=== PATIENT | male | born 1965 | race Caucasian/White ===

== ENCOUNTER → 2017-12-18 | Outpatient (CLI) | payer OTHER ==
[2017-12-18 12:47] LABS: ABSOLUTE BASOPHILS # (AUTO) 0.1 10^3/uL (0.0-0.2); ABSOLUTE EOSINOPHILS # (AUTO) 0.2 10^3/uL (0.0-0.6); ABSOLUTE LYMPHOCYTES (AUTO) 1.5 10^3/uL (0.5-4.7); ABSOLUTE MONOCYTES (AUTO) 0.6 10^3/uL (0.1-1.4); ABSOLUTE NEUT (AUTO) 2.6 10^3/uL (1.7-8.2); BASOPHILS % (AUTO) 1.2 % (0-2); EOSINOPHILS % (AUTO) 4.7 % (0-6); HEMATOCRIT 42.5 % (37.9-51.0); HEMOGLOBIN 14.4 g/dL (13.5-17.0); LYMPHOCYTES % (AUTO) 30.2 % (13-45); MEAN CORPUSCULAR HEMOGLOBIN 28.5 pg (27.0-33.4); MEAN CORPUSCULAR VOLUME 84 fl (80-97); MONOCYTES % (AUTO) 11.5 % (3-13); PLATELET COUNT 205 10^3/uL (150-450); RED BLOOD COUNT 5.06 10^6/uL (4.35-5.55); RED CELL DISTRIBUTION WIDTH 14.2 % (11.5-14.0); SEGMENTED NEUTROPHILS % (AUTO) 52.4 % (42-78); TOTAL CELLS COUNTED % (AUTO) 100 %; WHITE BLOOD COUNT 4.9 10^3/uL (4.0-10.5)
[2017-12-18 13:03] LABS: INTERNATIONAL RATION (INR) 0.94; PARTIAL THROMBOPLASTIN TIME 29.1 SEC (23.5-35.8); PROTHROMBIN TIME 13.1 SEC (11.4-15.4)
[2017-12-18 13:05] LABS: APPEARANCE,URINE SLIGHTLY-CLOUDY; BILIRUBIN,URINE NEGATIVE (NEGATIVE); COLOR,URINE YELLOW; GLUCOSE, URINE NEGATIVE (NEGATIVE); KETONES,URINE TRACE mg/dL (NEGATIVE); LEUKOCYTE ESTERASE,URINE TRACE (NEGATIVE); NITRITE,URINE NEGATIVE (NEGATIVE); PROTEIN,URINE NEGATIVE (NEGATIVE); URINE SPECIFIC GRAVITY 1.025; UROBILINOGEN,URINE NEGATIVE mg/dL (<2.0)
== END ==
LOC: OD 11:43
PROVIDERS: ATTEND Pain Medicine Interventional Pain Medicine
DX: D68.9 Coagulation defect, unspecified (principal)
CPT/HCPCS: 36415; 81001; 85025; 85610; 85730

== ENCOUNTER 2018-01-12 08:59 | Day surgery (SDC) | payer OTHER ==
[2018-01-11 11:02] LABS: APPEARANCE,URINE CLEAR; BILIRUBIN,URINE NEGATIVE (NEGATIVE); COLOR,URINE STRAW; GLUCOSE, URINE NEGATIVE (NEGATIVE); KETONES,URINE NEGATIVE (NEGATIVE); LEUKOCYTE ESTERASE,URINE NEGATIVE (NEGATIVE); NITRITE,URINE NEGATIVE (NEGATIVE); PROTEIN,URINE NEGATIVE (NEGATIVE); URINE SPECIFIC GRAVITY 1.006; UROBILINOGEN,URINE NEGATIVE mg/dL (<2.0)
[2018-01-11 11:14] LABS: INTERNATIONAL RATION (INR) 0.95; PROTHROMBIN TIME 13.2 SEC (11.4-15.4)
--- NOTE | 2018-01-11 11:14 | RADIOLOGY REPORT (SQ) ---
EXAM DESCRIPTION: CHEST PA/LATERAL COMPLETED DATE/TIME: 01/11/2018 11:06 am REASON FOR STUDY: PRE-OP COMPARISON: None. EXAM PARAMETERS: NUMBER OF VIEWS: two views TECHNIQUE: Digital Frontal and Lateral radiographic views of the chest acquired. RADIATION DOSE: NA LIMITATIONS: none FINDINGS: LUNGS AND PLEURA: No opacities, masses or pneumothorax. No pleural effusion. MEDIASTINUM AND HILAR STRUCTURES: No masses or contour abnormalities. HEART AND VASCULAR STRUCTURES: Heart normal size. No evidence for failure. BONES: No acute changes. Lower cervical fusion plate HARDWARE: None in the chest. OTHER: No other significant finding. IMPRESSION: NO SIGNIFICANT RADIOGRAPHIC FINDING IN THE CHEST. TECHNICAL DOCUMENTATION: JOB ID: [id number] [employer]- All Rights Reserved Reading location - IP/workstation name: [email or web address]
[2018-01-11 11:15] LABS: PARTIAL THROMBOPLASTIN TIME 28.1 SEC (23.5-35.8)
[2018-01-11 11:17] LABS: HEMATOCRIT 41.4 % (37.9-51.0); HEMOGLOBIN 14.1 g/dL (13.5-17.0); MEAN CORPUSCULAR HEMOGLOBIN 28.5 pg (27.0-33.4); MEAN CORPUSCULAR HGB CONC 34.2 g/dL (32.0-36.0); MEAN CORPUSCULAR VOLUME 84 fl (80-97); PLATELET COUNT 245 10^3/uL (150-450); RED BLOOD COUNT 4.96 10^6/uL (4.35-5.55); RED CELL DISTRIBUTION WIDTH 13.9 % (11.5-14.0); WHITE BLOOD COUNT 5.7 10^3/uL (4.0-10.5)
--- NOTE | 2018-01-11 22:57 | EKG REPORT ---
SEVERITY:- BORDERLINE ECG - SINUS RHYTHM CONSIDER RVH OR POSTERIOR INFARCT : Confirmed by: Raul Mccormick 11-Jan-2018 22:56:10
[~2018-01-12 08:59] MED LIST: CEFAZOLIN 1 GM/D5W RTU 1 GM/50 ML RTUPB IV PRN; LACTATED RINGERS 1000 ML IV PRN; LIDOCAINE 0.5% INJ-PF (5 MG/ML) 50 ML SDV SUBCUT PRN
[2018-01-12] MEDS ORDERED: MIDAZOLAM 2 MG/2 ML INJ ONE (09:23)
[2018-01-12] MEDS ORDERED: LIDOCAINE 2% INJ-PF (20 MG/ML) 10 ML AMPUL ONE (09:23)
[2018-01-12] MEDS ORDERED: FENTANYL CITRATE INJ/PF 100 MCG/2 ML AMPUL ONE (09:23)
[2018-01-12] MEDS ORDERED: ONDANSETRON HCL INJ/PF 4 MG/2 ML SDV ONE (09:23)
[2018-01-12] MEDS ORDERED: PROPOFOL INJ 200 MG/20 ML VIAL IV ONE ×3 (09:24→13:29)
[2018-01-12] MEDS ORDERED: SODIUM BICARBONATE 8.4% INJ 50 MEQ/50 ML DISP.SYRIN ONE (10:55)
[2018-01-12] MEDS ORDERED: BUPIVACAINE HCL 0.25% /EPINEPHRINE INJ/PF 30 ML SDV ONE (10:55)
[2018-01-12] MEDS ORDERED: LIDOCAINE 1% INJ-PF (10 MG/ML) 30 ML SDV ONE ×2 (10:55→11:44)
[2018-01-12] MEDS ORDERED: ONDANSETRON HCL INJ/PF 4 MG/2 ML SDV IV PRN (11:42)
[2018-01-12] MEDS ORDERED: MEPERIDINE HCL/PF INJ 25 MG/1 ML DISP.SYRIN IV PRN (11:42)
[2018-01-12] MEDS ORDERED: FENTANYL CITRATE INJ/PF 100 MCG/2 ML AMPUL IV PRN ×3 (11:42)
[2018-01-12] MEDS ORDERED: DIPHENHYDRAMINE HCL 50 MG/ML VIAL IV PRN (11:42)
[2018-01-12] MEDS ORDERED: PROMETHAZINE HCL INJ 25 MG/1 ML VIAL IV PRN ×2 (11:42)
[2018-01-12] MEDS ORDERED: MORPHINE SULFATE 10 MG/ML INJ IV PRN (11:42)
[2018-01-12] MEDS ORDERED: CEFAZOLIN INJ 1 GM VIAL ONE (13:27)
--- NOTE | 2018-01-12 13:41 | OPERATIVE REPORT E ---
Operative Report NAME: KARTHIKEYAN OCAMPO : 1965 AGE: 52Y DATE OF SURGERY: 01/12/2018 ROOM: PREOPERATIVE DIAGNOSIS: Post-laminectomy syndrome with chronic back and lower extremity pain, including radiculopathy. POSTOPERATIVE DIAGNOSIS: Post-laminectomy syndrome with chronic back and lower extremity pain, including radiculopathy. OPERATIVE PROCEDURE: Surgical implantation of right and left spinal cord stimulating leads under fluoroscopic guidance, implantation of programmable, rechargeable spinal cord stimulator pulse generator with complex programming. SURGEON: JENNIFER FARNSWORTH M.D. BOTANY TEACHER: LINDA LOU M.D. ANESTHESIA: MAC. ESTIMATED BLOOD LOSS: Minimal. INDICATIONS: Chronic intractable pain with successful outpatient trial of spinal cord stimulation. SPECIMENS REMOVED: None. COMPLICATIONS: None. PROCEDURE NOTE: After obtaining informed consent advising this patient of the risks and benefits, including serious neurological injury, bleeding and infection, allergic reaction, paralysis, , and failure to obtain pain relief, patient was taken to the operating room. He was placed comfortably in the prone position. MAC anesthesia was administered preceded by placement of monitors. The patient was prepped with chlorhexidine with appropriate drying time and then draped. He was evaluated under fluoroscopy. A suitable entrance site was identified at the T12-L1 interspace. The pulse generator pocket site had also been predetermined over the right flank region. Using local anesthesia at the selected sites, the skin was anesthetized, as was the deep tissues, with 1% lidocaine with bicarb followed by 0.25% bupivacaine with epinephrine. Both surgical sites were incised and sharp and blunt dissection were utilized with electrocautery as necessary for hemostasis. Once suitable working room was created in the lumbar spine region, the paraspinal musculature was anesthetized. The Tuohy needles, 14 gauge, were placed using the long 6 inch, 14-gauge curved tip needles. Beginning at the right the needle entered the epidural space without difficulty using loss of resistance to saline technique. The wire was placed, octrode into it, and checked in the lateral position and was found to be posterior. This was repeated on the left-hand side. The wires were advanced. The right wire needed to be repositioned several times due to cranking anteriorly. I eventually tracked posterior in the desired location up to the mid portion of T8 on the left and the bottom of T8 on the right. Trial of stimulation was then performed with multiple programming sessions. Good stimulation was obtained as necessary in all affected regions. Decision was made to continue with the implant. Pursestrings were placed around each needle using an 0 Mersilene followed by distal stay sutures. Beginning on the right, the needle was removed with care being taken not to dislodge the electrode. The anchor was then placed over the electrode down to the pursestring and the pursestring was secured followed by securing the Mersilene to the anchor. The distal stay suture was then secured to the anchor. No lead movement occurred. This was repeated on the left side. The pulse generator pocket had been successfully created and the track from the pocket through the midline was anesthetized with 1% lidocaine. The wires were then tunneled using a tunneling tool from the midline to the pulse generator pocket and connected to the pulse generator and all hex nuts were secured. Connectivity was tested and was found to be satisfactory. The leads were coiled appropriately to lay flat in both pocket and pulse generator site. All wounds were copiously irrigated with betadine-containing irrigation solution. The pulse generator site was closed with a single layer of inverted vertical mattress sutures using 3-0 Polysorb followed by Dermabond tape and cement with Telfa and sponge Tegaderms. The midline incision was closed with 2 layers of inverted vertical mattress sutures using 3-0 Polysorb followed by alma. This was covered with a Telfa and a sponge Tegaderm, as was the gluteal incision. The patient remained hemodynamically and neurologically stable and was taken to the PACU for further postoperative care and monitoring. DICTATING PHYSICIAN: LINDA LOU M.D. [id number] Y#: [id number] [id number] ID: [id number] JOB#: [id number] ACCT: [id number] cc:LINDA LOU M.D. >
[2018-01-12] MEDS ORDERED: OXYCODONE-ACETAMINOPHEN 5-325 MG TABLET ONE (14:10)
[2018-01-12] MEDS ORDERED: OXYCODONE-ACETAMINOPHEN 5-325 MG TABLET PO PRN (14:37)
--- NOTE | 2018-01-12 15:09 | RADIOLOGY REPORT (SQ) ---
EXAM DESCRIPTION: NO CHG FLUORO; THORACOLUMBAR SPINE AP/LAT COMPLETED DATE/TIME: 01/12/2018 2:55 pm REASON FOR STUDY: SPINAL STIMULATOR PLCMT ASST WITH FLUORO IN OR M54.6 PAIN IN THORACIC SPINE COMPARISON: None. FLUOROSCOPY TIME: 6.6 minutes. 15 images saved to PACS. TECHNIQUE: Intra-operative images acquired during surgical procedure to evaluate progress. NUMBER OF IMAGES: 15 LIMITATIONS: None. FINDINGS: Numerous images reveal placement of epidural spinal leads. Level difficult to assess base d on limited field of view images. Please correlate with operative note. IMPRESSION: IMAGE(S) OBTAINED DURING PROCEDURE. COMMENT: Quality ID 145: Final reports for procedures using fluoroscopy that document radiation exp osure indices, or exposure time and number of fluorographic images (if radiation exposure indices are not available) Please consult full operative report of the attending physician for description of the procedure. TECHNICAL DOCUMENTATION: JOB ID: [id number] [employer]- All Rights Reserved Reading location - IP/workstation name: [email or web address]
--- NOTE | 2018-01-12 15:09 | RADIOLOGY REPORT (SQ) ---
EXAM DESCRIPTION: NO CHG FLUORO; THORACOLUMBAR SPINE AP/LAT COMPLETED DATE/TIME: 01/12/2018 2:55 pm REASON FOR STUDY: SPINAL STIMULATOR PLCMT ASST WITH FLUORO IN OR M54.6 PAIN IN THORACIC SPINE COMPARISON: None. FLUOROSCOPY TIME: 6.6 minutes. 15 images saved to PACS. TECHNIQUE: Intra-operative images acquired during surgical procedure to evaluate progress. NUMBER OF IMAGES: 15 LIMITATIONS: None. FINDINGS: Numerous images reveal placement of epidural spinal leads. Level difficult to assess base d on limited field of view images. Please correlate with operative note. IMPRESSION: IMAGE(S) OBTAINED DURING PROCEDURE. COMMENT: Quality ID [id number]: Final reports for procedures using fluoroscopy that document radiation exp osure indices, or exposure time and number of fluorographic images (if radiation exposure indices are not available) Please consult full operative report of the attending physician for description of the procedure. TECHNICAL DOCUMENTATION: JOB ID: [id number] [employer]- All Rights Reserved Reading location - IP/workstation name: [email or web address]
[2018-01-12 15:34] VITALS: BP 100/58
== END 2018-01-12 15:15 | disposition home or self-care (01) ==
LOC: OROUT 08:59
PROVIDERS: ATTEND Pain Medicine Interventional Pain Medicine
DX: M54.6 Pain in thoracic spine (principal); I10 Essential (primary) hypertension; E03.9 Hypothyroidism, unspecified; M54.16 Radiculopathy, lumbar region; Z87.891 Personal history of nicotine dependence; Z88.8 Allergy status to other drugs, medicaments and biological substances; Z79.899 Other long term (current) drug therapy; Z79.82 Long term (current) use of aspirin
CPT/HCPCS: 93005; 36415; 85027; 85610; 85730; 81001; 71046; 72080; 93010; 63685; 63650; C1778; J2250; J3490 ×4; J0690 ×2; J3010; J2405; J2704; 300

== ENCOUNTER → 2018-11-15 | Outpatient (CLI) | payer OTHER ==
[2018-11-15 15:02] LABS: ALANINE AMINOTRANSFERASE 42 U/L (21-72); ALBUMIN 4.9 g/dL (3.5-5.0); ALKALINE PHOSPHATASE 83 U/L (38-126); ANION GAP 11 (5-19); ASPARTATE AMINO TRANSFERASE 28 U/L (17-59); BILIRUBIN,DIRECT 0.4 mg/dL (0.0-0.4); BILIRUBIN,TOTAL 0.6 mg/dL (0.2-1.3); BLOOD UREA NITROGEN 15 mg/dL (7-20); CALCIUM 9.5 mg/dL (8.4-10.2); CARBON DIOXIDE 26 mmol/L (22-30); CHLORIDE 103 mmol/L (98-107); GLUCOSE 110 mg/dL (75-110); POTASSIUM 4.7 mmol/L (3.6-5.0); SODIUM 140.4 mmol/L (137-145); TOTAL PROTEIN 8.2 g/dL (6.3-8.2)
== END ==
LOC: OD 13:22
PROVIDERS: ATTEND Pain Medicine Interventional Pain Medicine
DX: Z51.81 Encounter for therapeutic drug level monitoring (principal); Z79.1 Long term (current) use of non-steroidal anti-inflammatories (NSAID)
CPT/HCPCS: 36415; 80053

== ENCOUNTER → 2019-03-04 | Outpatient (CLI) | payer OTHER ==
--- NOTE | 2019-03-04 12:07 | RADIOLOGY REPORT (SQ) ---
EXAM DESCRIPTION: MRI LUMBAR SPINE WITHOUT COMPLETED DATE/TIME: 03/04/2019 10:40 am REASON FOR STUDY: (M54.16)RADICULOPATHY, LUMBAR REGION M54.16 RADICULOPATHY, LUMBAR REGION COMPARISON: None. TECHNIQUE: Sagittal and Axial imaging includes T1, T2, STIR and gradient echo sequences. Coronal T2/ HASTE imaging. LIMITATIONS: None. FINDINGS: VISUALIZED UPPER ABDOMEN: Limited evaluation. No acute or suspicious findings suggested. SEGMENTATION: No transitional anatomy. The lowest well-developed disc space is labeled L5-S1. ALIGNMENT: Anatomic. VERTEBRAE: Intact. BONE MARROW: Modic type 2 changes are present at L3-4 and L4-5. DISC SIGNAL: Decreased signal intensity from L3-L5. L 3-4 and L4-5 disc spaces are narrowed. POSTERIOR ELEMENTS: Generally intact. No pars defect evident. HARDWARE: Neurostimulator is present. CORD AND CONUS: Normal in size and signal intensity. Conus at the L1 level. SOFT TISSUES: No aortic aneurysm seen. No bulky retroperitoneal adenopathy or mass. No paraspinal mas s or fluid. L1-L2: No significant spinal stenosis or exit foraminal stenosis. L2-L3: Circumferential disc bulge with mild narrowing of the right neural foramen. L3-L4: Hypertrophic facet changes in the left articular facet result in central canal stenosis and mi ld left foraminal stenosis. Is there history of a prior fracture in this area? L4-L5: No significant spinal stenosis or exit foraminal stenosis. L5-S1: Midline/ slightly right paracentral disc bulge slightly displaces the traversing nerve root on the right. No foraminal stenosis. LOWER THORACIC: Incompletely imaged. No stenosis seen. SACRUM: Visualized upper sacrum intact. OTHER: No other significant findings. IMPRESSION: Mild disc changes at several levels. Most significant finding appears to be at L3-4 or there are facet changes on the left that results in central canal stenosis and mild foraminal stenosi s. TECHNICAL DOCUMENTATION: JOB ID: [id number] - [employer]- All Rights Reserved Reading location - IP/workstation name: [email or web address]
== END ==
LOC: RAD 09:57
PROVIDERS: ATTEND Physician Assistant
DX: M51.16 Intervertebral disc disorders with radiculopathy, lumbar region (principal)
CPT/HCPCS: 72148